=== PATIENT | female | born 1935 | race Caucasian/White ===

== ENCOUNTER 2019-12-24 04:13 | Inpatient (IN) | payer MEDICARE ==
[~2019-12-24] VITALS: Ht 154.9 cm; Wt 60.3 kg
[2019-12-24] MEDS ORDERED: REMERON30 M1 PO (04:25)
[2019-12-24] MEDS ORDERED: LASIX20 MG PO (04:25)
[2019-12-24] MEDS ORDERED: ASPIR LOW81 MG PO (04:26)
[2019-12-24] MEDS ORDERED: MAG-OXIDE200 MG PO (04:26)
[2019-12-24] MEDS ORDERED: COLACE100 MG PO (04:27)
[2019-12-24] MEDS ORDERED: COREG3.125 MG PO (04:28)
[2019-12-24] MEDS ORDERED: AMILORIDE5 MG PO (04:28)
[2019-12-24] MEDS ORDERED: COZAAR50 M1 PO (04:28)
[2019-12-24] MEDS ORDERED: CRESTOR40 M1 PO (04:31)
[2019-12-24] MEDS ORDERED: NOVOLOG 70/30 M10 ML SQ (04:31)
[2019-12-24] MEDS ORDERED: OSCAL/D,OYSTER250 MG PO (04:35)
[2019-12-24] MEDS ORDERED: GLUCOPHAGE500 M1 PO (04:37)
[2019-12-24] MEDS ORDERED: Atrovent 0.03%30 ML NAS (04:38)
[2019-12-24] MEDS ORDERED: ALBUTEROL0.63 MG/3 INH (04:39)
[2019-12-24] MEDS ORDERED: ZOLOFT50 MG PO (04:40)
[2019-12-24 05:50] VITALS: BP 119/88
[2019-12-24 06:56] LABS: BASO % 0.5 % (0.0-1.0); EOS # 0.2 10*3/uL (0.0-0.4); EOS % 3.5 % (1.0-4.0); HEMATOCRIT 36.6 % (37.0-47.0); HEMOGLOBIN 11.2 g/dl (12.0-16.0); LYMPH # 0.9 10*3/uL (1.3-4.4); LYMPH % 14.2 % (27.0-41.0); MEAN CELL VOLUME 95.3 fl (81.0-99.0); MEAN CORPUSCULAR HGB 29.2 pg (27.0-31.0); MEAN CORPUSCULAR HGB CONC 30.6 g/dl (33.0-37.0); MONO # 0.4 10*3/uL (0.1-1.0); MONO % 6.5 % (3.0-9.0); PLATELET COUNT AUTOMATED 240 10*3/uL (130-400); RED BLOOD COUNT 3.84 10*6/uL (4.10-5.10); RED CELL DISTRI WIDTH 16.2 % (0-14.5); WHITE BLOOD COUNT 6.6 10*3/uL (4.8-10.8)
[2019-12-24 07:12] LABS: ALBUMIN 2.4 gm/dl (3.1-4.5); CREATININE 1.29 mg/dL (0.55-1.02); POTASSIUM 4.9 mmol/L (3.5-5.1); TOTAL PROTEIN 6.8 gm/dL (6.4-8.2)
[2019-12-24 07:20] LABS: THYROID STIM HORMONE (HS) 2.11 uIU/ml (0.358-4.75)
[2019-12-24 07:34] VITALS: BP 119/88
[2019-12-24 08:42] LABS: VITAMIN D, 25-HYDROXY 49.5 ng/mL (30-100)
[2019-12-24 19:44] VITALS: BP 118/74
[2019-12-24 22:02] LABS: BILIRUBIN 1+ (NEGATIVE); BLOOD 2+ (NEGATIVE); CLARITY CLOUDY (CLEAR); COLOR YELLOW (YELLOW); GLUCOSE NEGATIVE (NEGATIVE); KETONE NEGATIVE (NEGATIVE); LEUKO ESTERASE 2+ (NEGATIVE); NITRITE NEGATIVE (NEGATIVE); PH 7.5 (5.0-9.0); SPECIFIC GRAVITY 1.025 (1.005-1.030); UROBILINOGEN 0.2 E.U./dl (0.2-1.0)
[2019-12-24 22:03] LABS: BACTERIA 3+; MUCOUS 2+; WBC TNTC wbc/hpf (0-5)
[2019-12-25 08:05] VITALS: BP 120/78
[2019-12-25 20:00] VITALS: BP 124/76
[2019-12-26 07:43] LABS: CREATININE 1.44 mg/dL (0.55-1.02); POTASSIUM 5.4 mmol/L (3.5-5.1)
[2019-12-26 08:00] VITALS: BP 119/73
[2019-12-26 19:48] VITALS: BP 118/75
[2019-12-27 08:00] VITALS: BP 126/79
[2019-12-27 20:00] VITALS: BP 110/70
[2019-12-28 06:58] LABS: CREATININE 1.23 mg/dL (0.55-1.02); POTASSIUM 4.6 mmol/L (3.5-5.1)
[2019-12-28 07:34] VITALS: BP 127/41
[2019-12-28 20:00] VITALS: BP 116/60
[2019-12-29 06:25] LABS: CREATININE 1.24 mg/dL (0.55-1.02)
[2019-12-29 06:33] LABS: POTASSIUM 5.9 mmol/L (3.5-5.1)
[2019-12-29 07:46] VITALS: BP 114/54
[2019-12-29 09:09] VITALS: BP 110/50
[2019-12-29 15:41] LABS: CREATININE 1.29 mg/dL (0.55-1.02); POTASSIUM 4.9 mmol/L (3.5-5.1)
[2019-12-29 19:47] VITALS: BP 112/52
[2019-12-30 07:12] LABS: CREATININE 1.09 mg/dL (0.55-1.02); POTASSIUM 4.9 mmol/L (3.5-5.1)
[2019-12-30 07:19] VITALS: BP 110/50
[2019-12-30 19:07] VITALS: BP 109/54
[2019-12-31 07:24] VITALS: BP 106/48; BP 118/58
[2019-12-31 19:52] VITALS: BP 126/62
[2020-01-01 07:49] VITALS: BP 124/62
[2020-01-01] MEDS ORDERED: MIRTAZAPINE15 M2 PO (09:08)
[2020-01-01] MEDS ORDERED: ZINC SULFATE220 MG PO (09:08)
== END 2020-01-01 13:04 | disposition home or self-care (01) | DRG 885 ==
LOC: 3N 04:13
PROVIDERS: Family Medicine; Internal Medicine; Student in an Organized Health Care Education/Training Program; ADMIT Psychiatry & Neurology Psychiatry
DX: F33.9 Major depressive disorder, recurrent, unspecified (principal); J44.9 Chronic obstructive pulmonary disease, unspecified; I10 Essential (primary) hypertension; E11.69 Type 2 diabetes mellitus with other specified complication; Z99.81 Dependence on supplemental oxygen; Z88.0 Allergy status to penicillin; Z88.8 Allergy status to other drugs, medicaments and biological substances; Z79.4 Long term (current) use of insulin; Z90.49 Acquired absence of other specified parts of digestive tract; Z98.49 Cataract extraction status, unspecified eye; Z98.51 Tubal ligation status; Z90.710 Acquired absence of both cervix and uterus; Z82.49 Family history of ischemic heart disease and other diseases of the circulatory system